=== PATIENT | male | born 2000 | race African-American/Black ===

== ENCOUNTER 2022-02-07 10:38 | Emergency (ER) | payer SELFPAY ==
[2022-02-07] MEDS ORDERED: IBUPROFEN 400 MG TAB ONE (10:55)
--- NOTE | 2022-02-07 11:05 | RAD REPORT ---
EXAM DESCRIPTION: RAD - Hand Left 3 View - 02/07/2022 10:58 am CLINICAL HISTORY: hand injury COMPARISON: No comparisons FINDINGS: Soft tissue swelling affects the second finger. No fracture or dislocation seen.
--- NOTE | 2022-02-07 11:10 | ER ---
Nurse's Notes [facility] Name: Kevin Blakely Jr Age: 21 yrs Sex: Male : 2000 Arrival Date: 02/07/2022 Time: 10:39 Bed Treatment Private MD: Diagnosis: Contusion of the Left Hand, initial visit Presentation: 02/07 10:44 Chief complaint: Patient states: got is left hand smashed between to large metal hooks, iw has pain and swelling to left index finger. Coronavirus screen: At this time, the client does not indicate any symptoms associated with coronavirus-19. Ebola Screen: Patient negative for fever greater than or equal to 101.5 degrees Fahrenheit, and additional compatible Ebola Virus Disease symptoms Patient denies exposure to infectious person. Patient denies travel to an Ebola-affected area in the 21 days before illness onset. No symptoms or risks identified at this time. Initial Sepsis Screen: Does the patient meet any 2 criteria? No. Patient's initial sepsis screen is negative. Does the patient have a suspected source of infection? No. Patient's initial sepsis screen is negative. Risk Assessment: Do you want to hurt yourself or someone else? Patient reports no desire to harm self or others. Onset of symptoms was February 07, 2022. 10:44 Method Of Arrival: Ambulatory iw 10:44 Acuity: [facility]ST[place] 4 iw Triage Assessment: 11:00 General: Behavior is calm. iw 02/08 08:23 General: Appears. iw Historical: - Allergies: 02/07 10:46 No Known Allergies; iw - Home Meds: 10:46 None [Active]; iw - PMHx: 10:46 None; iw - PSHx: 10:46 None; iw Screenin:48 Abuse screen: Denies threats or abuse. Denies injuries from another. Nutritional iw screening: No deficits noted. Tuberculosis screening: No symptoms or risk factors identified. Fall Risk None identified. Assessment: 11:00 General: Appears in no apparent distress. Behavior is calm, cooperative. Pain: iw Complains of pain in left hand. Neuro: Level of Consciousness is awake, alert, obeys commands, Oriented to person, place, time, situation. Vital Signs: 10:46 BP 135 / 86; Pulse 89; Resp 16; Temp 98.0; Pulse Ox 100% on R/A; iw ED Course: 10:39 Patient arrived in ED. ds1 10:44 Renaldo Whitt PA is PHCP. [facility] 10:44 Luis Felipe Ellington MD is Attending Physician. m 10:46 Triage completed. iw 10:47 Arm band placed on. iw 11:00 Hand Left 3 View XRAY In Process Unspecified. EDMS 11:00 Patient has correct armband on for positive identification. iw 11:09 Javid Guzman MD is Referral Physician. [facility] 11:38 Frances Britton, RN is Primary Nurse. iw 11:48 No provider procedures requiring assistance completed. Patient did not have IV access iw during this emergency room visit. Administered Medications: 11:06 Drug: Ibuprofen 800 mg Route: PO; iw 11:30 Follow up: Response: No adverse reaction iw Outcome: 11:09 Discharge ordered by MD. m 11:48 Discharged to home ambulatory. iw 11:48 Condition: good 11:48 Discharge instructions given to patient, Instructed on discharge instructions, follow up and referral plans. Demonstrated understanding of instructions, follow-up care, medications, Prescriptions given X 1. 11:49 Patient left the ED. iw Signatures: Dispatcher [employer] EDMS Renaldo Whitt PA PA Amalia Richardson ds1 Frances Britton, RN RN iw Corrections: (The following items were deleted from the chart) 10:47 10:46 Resp 16bpm; Pulse Ox 100% RA; Temp 98.0F; iw iw
--- NOTE | 2022-02-07 11:10 | EDPHYS ---
Physician Documentation [facility] Name: Kevin Blakely Jr Age: 21 yrs Sex: Male : 2000 Arrival Date: 02/07/2022 Time: 10:39 Bed Treatment Private MD: ED Physician Luis Felipe Ellington HPI: 02/07 10:47 This 21 yrs old Black Male presents to ER via Ambulatory with complaints of Crush jmm Injury To Hand. 10:47 The patient or guardian reports injury, pain. Onset: The symptoms/episode jmm began/occurred acutely, just prior to arrival. Modifying factors: The symptoms are alleviated by nothing, the symptoms are aggravated by nothing. This is a 21-year-old male with no chronic medical conditions presents emerged part with complaints of left hand pain. Patient states his hand was crushed between 2 large hooks. Pain mainly located to the third through fifth metacarpal region. Historical: - Allergies: 10:46 No Known Allergies; iw - Home Meds: 10:46 None [Active]; iw - PMHx: 10:46 None; iw - PSHx: 10:46 None; iw ROS: 10:47 Constitutional: Negative for fever, chills, and weight loss, Cardiovascular: Negative jmm for chest pain, palpitations, and edema, Respiratory: Negative for shortness of breath, cough, wheezing, and pleuritic chest pain. 10:47 MS/extremity: Positive for injury or acute deformity. 10:47 All other systems are negative. Exam: 10:47 Constitutional: This is a well developed, well nourished patient who is awake, alert, jmm and in no acute distress. Head/Face: atraumatic. Eyes: EOMI, no conjunctival erythema appreciated ENT: Moist Mucus Membranes Neck: Trachea midline, Supple Chest/axilla: Normal chest wall appearance and motion. Cardiovascular: Regular rate and rhythm. No edema appreciated Respiratory: Normal respirations, no respiratory distress appreciated Abdomen/GI: Non distended, soft Back: Normal ROM Skin: General appearance color normal 10:47 Musculoskeletal/extremity: Pain elicited on palpation of the third through fifth metacarpal, sensation is intact, full range of motion appreciated of all the metacarpals, compartments are soft, less than 2-second distal capillary refill, neurovascular intact. 10:47 Skin: Appearance: Color: normal in color. 10:47 Neuro: Orientation: is normal, Mentation: is normal, Memory: is normal. 10:47 Psych: Behavior/mood is pleasant, cooperative. Vital Signs: 10:46 BP 135 / 86; Pulse 89; Resp 16; Temp 98.0; Pulse Ox 100% on R/A; iw MDM: 10:47 Patient medically screened. [facility] 11:08 Data reviewed: vital signs, nurses notes. Counseling: I had a detailed discussion with [facility] the patient and/or guardian regarding: the historical points, exam findings, and any diagnostic results supporting the discharge/admit diagnosis, radiology results, the need for outpatient follow up, to return to the emergency department if symptoms worsen or persist or if there are any questions or concerns that arise at home. ED course: Xray negative. Advised to follow up with hand for further evaluation. Patient is otherwise given strict return precautions. Patient understood and agrees with the plan of care. . 02/07 10:47 Order name: Hand Left 3 View XRAY; Complete Time: 11:08 [facility] Administered Medications: 11:06 Drug: Ibuprofen 800 mg Route: PO; iw 11:30 Follow up: Response: No adverse reaction Disposition: 16:53 Co-signature as Attending Physician, Luis Felipe Ellington MD. rn Disposition Summary: 02/07/22 11:09 Discharge Ordered Location: Home [facility] Condition: Stable [facility] Diagnosis - Contusion of the Left Hand, initial visit [facility] Followup: [facility] - With: Javid Guzman MD - When: 2 - 3 days - Reason: Recheck today's complaints, Continuance of care, Re-evaluation by your physician Discharge Instructions: - Discharge Summary Sheet [facility] - Hand Contusion [facility] Forms: - Medication Reconciliation Form [facility] - Thank You Letter [facility] - Antibiotic Education [facility] - Prescription Opioid Use [facility] - Work release form Prescriptions: - Ibuprofen 800 mg Oral Tablet - take 1 tablet by ORAL route every 8 hours As needed take with food; 30 tablet; [facility] Refills: 0, Product Selection Permitted Signatures: Dispatcher [employer] EDMS Renaldo Whitt PA PA jmm Williams, Irene, RN RN iw Luis Felipe Ellington MD MD rn
[2022-02-07 12:06] VITALS: BP 135/86; TEMP 98; O2SAT 100
== END 2022-02-07 11:49 | disposition home or self-care (01) ==
LOC: ER 10:38
DX: S60.222A Contusion of left hand, initial encounter (principal); W23.0XXA Caught, crushed, jammed, or pinched between moving objects, initial encounter
CPT/HCPCS: 99283